=== PATIENT | female | born 1960 | race Caucasian/White ===

== ENCOUNTER 2021-11-22 17:00 | Outpatient (RCR) | payer BC | END 2021-11-24 | LOC: PT 17:00 | PROVIDERS: ATTEND Specialist | DX: S39.012D Strain of muscle, fascia and tendon of lower back, subsequent encounter (principal); M43.16 Spondylolisthesis, lumbar region; M70.61 Trochanteric bursitis, right hip; M70.62 Trochanteric bursitis, left hip; M25.552 Pain in left hip; M62.81 Muscle weakness (generalized) ==